=== PATIENT | female | born 1960 | race Native Hawaiian/Other Pacific Islander ===

== ENCOUNTER 2017-02-08 14:35 | Outpatient (CLI) | payer OTHER | END 2017-02-08 15:40 | disposition home or self-care (01) | LOC: LABW 14:35 | DX: R19.7 Diarrhea, unspecified (principal) | CPT/HCPCS: 82272; 87015; 87045; 87205; 87328; 87329; 87493; 87899 ==

== ENCOUNTER 2017-07-02 11:26 | Outpatient (CLI) | payer OTHER | END 2017-07-02 19:24 | disposition home or self-care (01) | LOC: MAMMO 11:26 | DX: Z12.31 Encounter for screening mammogram for malignant neoplasm of breast (principal) ==

== ENCOUNTER 2017-10-21 08:43 | Emergency (ER) | payer OTHER ==
[~2017-10-21] VITALS: Ht 160 cm; Wt 77.1 kg
[2017-10-21 08:40] VITALS: TEMP 98.4
[2017-10-21] MEDS ORDERED: CHLO50TA22 PO (08:52)
[2017-10-21] MEDS ORDERED: ASPIRIN 81 LOW81 MG PO (08:53)
[2017-10-21] MEDS ORDERED: GABA300C2 PO (08:53)
[2017-10-21] MEDS ORDERED: HYZAAR1 TA2 PO (08:55)
[2017-10-21] MEDS ORDERED: ZYPREXA ZYDI20 MG OR (08:55)
[2017-10-21] MEDS ORDERED: HYDR5TAB9 PO (08:56)
[2017-10-21] MEDS ORDERED: RISP1TAB PO (08:57)
[2017-10-21] MEDS ORDERED: SIMV40TA57 (08:57)
[2017-10-21] MEDS ORDERED: COLON CLEANSE1 CAP PO (08:58)
[2017-10-21] MEDS ORDERED: OMEPRAZOLE20 M1 OR (08:58)
[2017-10-21] MEDS ORDERED: D3-50 PO (09:00)
[2017-10-21 09:17] LABS: PLATELET COUNT 361 K/uL (152-353)
[2017-10-21 09:25] LABS: POTASSIUM 3.3 mmol/L (3.6-5.2)
[2017-10-21 09:30] LABS: PARTIAL THROMBOPLASTIN TIME 22.5 SECONDS (24.5-33.6)
[2017-10-21 12:00] VITALS: BP 128/74
== END 2017-10-21 12:40 | disposition other institution (70) ==
LOC: ED 08:43
PROVIDERS: Family Medicine
DX: F31.89 Other bipolar disorder (principal); F23 Brief psychotic disorder; F20.89 Other schizophrenia; Z79.899 Other long term (current) drug therapy; Z51.81 Encounter for therapeutic drug level monitoring
CPT/HCPCS: 36415; 80053; 80307; 80320; 80329; 81000; 85027; 85610; 85730; 93005; 99283

== ENCOUNTER 2018-08-11 14:39 | Outpatient (CLI) | payer OTHER ==
[~2018-08-11 14:39] MED LIST: ASPIRIN 81 LOW81 MG PO; CHLO50TA22 PO; COLON CLEANSE1 CAP PO; D3-50 PO; GABA300C2 PO; HYDR5TAB9 PO; HYZAAR1 TA2 PO; OMEPRAZOLE20 M1 OR; RISP1TAB PO; SIMV40TA57; ZYPREXA ZYDI20 MG OR
== END 2018-08-11 20:38 | disposition home or self-care (01) ==
LOC: MAMMO 14:39
DX: Z12.31 Encounter for screening mammogram for malignant neoplasm of breast (principal)

== ENCOUNTER 2019-05-20 15:10 | Outpatient (CLI) | payer OTHER ==
[2019-05-20] MEDS ORDERED: ALBUTEROL0.083 % INH (15:48)
[2019-05-20] MEDS ORDERED: CHLO50TA22 PO (15:48)
[2019-05-20] MEDS ORDERED: HYZAAR1 TA1 PO (15:49)
[2019-05-20] MEDS ORDERED: ROSUVASTATIN CA40 MG PO (15:50)
[2019-05-20] MEDS ORDERED: TRAMADOL HYDROC50 MG PO (15:50)
[2019-05-20] MEDS ORDERED: IPRASOL5 INH (15:50)
[2019-05-20] MEDS ORDERED: ZOLOFT25 MG PO (15:51)
== END 2019-05-20 15:11 | disposition short-term general hospital (02) ==
LOC: AMB 15:10
DX: F22 Delusional disorders (principal)
CPT/HCPCS: A0425; A0429

== ENCOUNTER 2019-05-20 15:16 | Emergency (ER) | payer OTHER ==
[~2019-05-20] VITALS: Ht 160 cm; Wt 70.8 kg
[2019-05-20 15:16] VITALS: TEMP 99
[2019-05-20] MEDS ORDERED: ALBUTEROL0.083 % INH (15:48)
[2019-05-20] MEDS ORDERED: CHLO50TA22 PO (15:48)
[2019-05-20] MEDS ORDERED: HYZAAR1 TA1 PO (15:49)
[2019-05-20] MEDS ORDERED: TRAMADOL HYDROC50 MG PO (15:50)
[2019-05-20] MEDS ORDERED: IPRASOL5 INH (15:50)
[2019-05-20] MEDS ORDERED: ROSUVASTATIN CA40 MG PO (15:50)
[2019-05-20] MEDS ORDERED: ZOLOFT25 MG PO (15:51)
[2019-05-20 15:57] LABS: PLATELET COUNT 362 K/uL (152-353)
[2019-05-20 16:07] LABS: POTASSIUM 2.8 mmol/L (3.6-5.2)
[2019-05-20 19:21] VITALS: BP 158/62
== END 2019-05-20 19:25 | disposition other institution (70) ==
LOC: ED 15:16
PROVIDERS: Emergency Medicine
DX: F31.89 Other bipolar disorder (principal); F20.89 Other schizophrenia
CPT/HCPCS: 36415; 80053; 80307; 80329; 81000; 85027; 93005; 99285

== ENCOUNTER 2019-06-14 12:26 | Outpatient (CLI) | payer OTHER ==
[~2019-06-14 12:26] MED LIST changes: +ALBUTEROL0.083 % INH; +HYZAAR1 TA1 PO; +IPRASOL5 INH; +ROSUVASTATIN CA40 MG PO; +TRAMADOL HYDROC50 MG PO; +ZOLOFT25 MG PO
== END 2019-06-14 19:52 | disposition home or self-care (01) ==
LOC: RAD 12:26
DX: M25.572 Pain in left ankle and joints of left foot (principal); W19.XXXA Unspecified fall, initial encounter

== ENCOUNTER 2021-02-18 18:11 | Outpatient (CLI) | payer OTHER | END 2021-02-18 19:22 | disposition home or self-care (01) | LOC: RAD 18:11 | PROVIDERS: ATTEND Nurse Practitioner Family | DX: M25.562 Pain in left knee (principal) ==

== ENCOUNTER 2021-03-22 02:46 | Emergency (ER) | payer OTHER ==
[~2021-03-22] VITALS: Ht 160 cm; Wt 70.8 kg
[2021-03-22 02:46] VITALS: TEMP 97.5
[2021-03-22 03:30] VITALS: BP 121/52
== END 2021-03-22 06:45 | disposition home or self-care (01) ==
LOC: ED 02:46
DX: R22.0 Localized swelling, mass and lump, head (principal); S09.8XXA Other specified injuries of head, initial encounter; Y04.2XXA Assault by strike against or bumped into by another person, initial encounter; Y92.098 Other place in other non-institutional residence as the place of occurrence of the external cause
CPT/HCPCS: 99282

== ENCOUNTER 2022-07-15 13:59 | Outpatient (CLI) | payer OTHER | END 2022-07-15 19:41 | disposition home or self-care (01) | LOC: RAD 13:59 | PROVIDERS: ATTEND Internal Medicine | DX: M79.601 Pain in right arm (principal); M25.531 Pain in right wrist; M79.631 Pain in right forearm; M25.521 Pain in right elbow; M25.562 Pain in left knee; W19.XXXA Unspecified fall, initial encounter ==